=== PATIENT | male | born 1965 | race Caucasian/White ===

== ENCOUNTER 2023-04-12 13:28 | Day surgery (SDC) | payer BC, OTHER ==
[2023-04-09 15:15] VITALS: BMI 34.2
[~2023-04-12 13:28] MED LIST: LACTATED RINGERS 1,000 ML IV SCH
[2023-04-12 14:24] VITALS: TEMP 97
[2023-04-12] MEDS ORDERED: PROPOFOL 10 MG/ML 20 ML VIAL IV ONE (15:25)
--- NOTE | 2023-04-12 15:46 | P.PCN ---
Date of Procedure: 04/12/23 Procedure(s) Performed: BRIEF HISTORY: Patient is a 58-year-old pleasant white male scheduled for an elective colonoscopy as a part of screening for colon cancer. PROCEDURE PERFORMED: Colonoscopy with snare polypectomy. PREOPERATIVE DIAGNOSIS: Screening for colon cancer. IV sedation per Anesthesia. PROCEDURE: After informed consent was obtained, the patient, was brought into the endoscopy unit. IV sedation was administered by Anesthesia under continuous monitoring. Digital rectal examination was normal. Initially the Olympus CF-160 flexible video colonoscope was then inserted in the rectum, gradually advanced into the cecum without any difficulty. Careful examination was performed as the scope was gradually being withdrawn. Ileocecal valve and the appendiceal orifice were visualized and appeared normal. Prep was excellent. Mucosa of the cecum, ascending colon, transverse colon, descending colon, normal. In the sigmoid: There was a 5 mm polyp that was removed by snare polypectomy. Rest of the sigmoid colon, and rectum appeared normal. In the proximal rectum there was a 1 cm broad-based polyp removed by snare polypectomy. Retroflexion was performed in the rectum and no lesions were seen. The patient tolerated the procedure well. IMPRESSION: 5 mm sigmoid polyp status post polypectomy 1 cm proximal rectal polyp status post polypectomy RECOMMENDATIONS: Findings of this examination were discussed with the patient as well as his family. He was advised to follow with the biopsy results. If the biopsy was adenoma he can have a repeat colonoscopy in 3 years..
[2023-04-12 16:10] VITALS: RESP 16
[2023-04-12 16:21] VITALS: BP 163/102; PULSE 76
== END 2023-04-12 16:29 | disposition home or self-care (01) ==
LOC: ORWHC2ENDO 13:28
PROVIDERS: ATTEND Internal Medicine Gastroenterology
DX: Z12.11 Encounter for screening for malignant neoplasm of colon (principal); D12.8 Benign neoplasm of rectum; F12.90 Cannabis use, unspecified, uncomplicated; Z98.890 Other specified postprocedural states
CPT/HCPCS: 88305; 45385; J2704

== ENCOUNTER → 2024-11-18 | Outpatient (CLI) | payer BC ==
--- NOTE | 2024-11-18 13:01 | MR ---
EXAMINATION TYPE: MR neck wo/w con DATE OF EXAM: 11/18/2024 12:54 PM COMPARISON: None. CLINICAL INDICATION: Male, 59 years old with history of R22.1 LOCALIZED SWELLING, MASS AND LUMP, NECK ; PHH, Palpable lump on left side neck, markers placed on each side. TECHNIQUE: Multi planar, multi sequence imaging was performed of the neck soft tissues. IV Contrast: 8 mL Gadobutrol FINDINGS: Left neck cystic mass is high T2 low T1 signal and enhances peripherally. measuring up to 1 5 x 43 x 41 mm. There is edema throughout the left cheek with enhancement. The mucosa of the orophary nx appears symmetric there is motion artifact limiting evaluation. The glottis appears unremarkable. Several nonenlarged anterior chain lymph nodes are identified. The cervical vertebral bodies have preserved heights and alignment. Multilevel disc desiccation and anterior osteophytosis are present. The cervical spinal cord demonstrates a normal appearance. IMPRESSION: Left neck cystic mass concerning for malignancy until proven otherwise. Descending recommended. Alter natively infection could be considered given some edematous changes in the soft tissues. Brachial jad ft cyst also could be considered which could be infected. [facility], , 11/18/2024 12:58 PM
== END | disposition home or self-care (01) ==
LOC: RADMRIMAIN 11:47
PROVIDERS: ATTEND Family Medicine
DX: R22.1 Localized swelling, mass and lump, neck (principal)
CPT/HCPCS: 70543; A9585